=== PATIENT | male | born 1995 | race Caucasian/White ===

== ENCOUNTER 2017-11-13 20:04 | Emergency (ER) | payer OTHER ==
[~2017-11-13] VITALS: Ht 175.3 cm; Wt 99.8 kg
--- NOTE | 2017-11-13 20:06 | ER Report ---
History and Physical Time Seen By MD: 20:05 HPI/RAFI CHIEF COMPLAINT: Left lower quadrant abdominal pain HISTORY OF PRESENT ILLNESS: 21-year-old male presents ambulatory to the ER complaining of left lower quadrant abdominal pain since this morning. He notes no constipation, no diarrhea, no dysuria. Patient's had no previous abdominal surgery. Patient notes no exacerbating or alleviating factors. He describes 6/ 10 pain, sharp in nature, occasionally becoming more intense. He's had some mild nausea but no vomiting REVIEW OF SYSTEMS: Respiratory: No cough, no dyspnea. Cardiovascular: No chest pain, no palpitations. Gastrointestinal: As above Musculoskeletal: No back pain. Allergies: Coded Allergies: No Known Drug Allergies (Unverified , 11/13/17) Home Meds Active Scripts Tramadol Hcl (TRAMADOL HCL) 50 Mg Tablet, 1 TAB PO Q6H Y for PAIN, #12 MG TAKE ONE TO TWO TABLETS BY MOUTH EVERY FOUR TO SIX HOURS NEEDED Prov:BRITTANYBAILEY Najera DO 11/13/17 Ondansetron Hcl (ZOFRAN) 4 Mg Tablet, 4 MG PO Q6H Y for NAUSEA/VOMITING, #12 Prov:BRITTANYBAILEY aDnia 11/13/17 Reviewed Nurses Notes: Yes Old Medical Records Reviewed: Yes Constitutional Vital Sign - Last 24 Hours 11/13/17 11/13/17 11/13/17 11/13/17 20:10 20:11 20:19 20:30 Temp 97.6 Pulse 85 68 Resp 14 B/P (MAP) 168/120 (136) 168/120 148/110 (123) Pulse Ox 94 96 11/13/17 11/13/17 11/13/17 11/13/17 20:34 20:49 21:00 21:10 Pulse 77 73 B/P (MAP) 147/93 (111) Pulse Ox 98 93 95 11/13/17 11/13/17 11/13/17 11/13/17 21:15 21:20 21:25 21:30 Pulse 69 69 70 63 B/P (MAP) 134/92 (106) Pulse Ox 97 96 97 99 11/13/17 11/13/17 11/13/17 11/13/17 21:35 21:40 21:45 21:50 Pulse 65 72 73 71 Pulse Ox 96 98 97 97 11/13/17 11/13/17 11/13/1712/18 21:55 22:00 22:05 22:10 Pulse 76 70 71 79 B/P (MAP) 127/90 (102) Pulse Ox 99 98 96 95 11/13/17 22:15 Pulse 78 Pulse Ox 98 Physical Exam General Appearance: The patient is alert, has no immediate need for airway protection and no current signs of toxicity. Vital signs stable, afebrile, pulse ox normal Eyes: Pupils equal and round no injection. Respiratory: Chest is non tender, lungs are clear to auscultation. Cardiac: regular rate and rhythm Gastrointestinal: Abdomen is soft, mild left lower quadrant tenderness, no rebound or guarding, no masses, bowel sounds normal. No CVA tenderness Musculoskeletal: Neck: Neck is supple and non tender. Extremities have full range of motion and are non tender. Skin: No rashes or lesions. DIFFERENTIAL DIAGNOSIS: After history and physical exam differential diagnosis was considered for abdominal pain including but not limited to appendicitis, cholecystitis, gastritis, renal stone, diverticulitis, colitis and urinary tract infection. Medical Decision Making Data Points Result Diagram: 11/13/17201511/13/172015 Laboratory Hematology Test 11/13/17 20:16 11/13/17 21:08 Red Blood Count 6.09 M/uL (4.00-5.60) Mean Corpuscular Volume 85.5 fL (80.0-96.0) Mean Corpuscular Hemoglobin 28.9 pg (26.0-33.0) Mean Corpuscular Hemoglobin Concent 33.8 g/dL (32.0-36.0) Red Cell Distribution Width 14.1 % (11.5-14.5) Mean Platelet Volume 7.7 fL (7.2-11.1) Neutrophils (%) (Auto) 45.7 % (39.4-72.5) Lymphocytes (%) (Auto) 38.3 % (17.6-49.6) Monocytes (%) (Auto) 10.2 % (4.1-12.4) Eosinophils (%) (Auto) 5.2 % (0.4-6.7) Basophils (%) (Auto) 0.6 % (0.3-1.4) Nucleated RBC Relative Count (auto) 0.1 /100WBC Neutrophils # (Auto) 4.2 K/uL (2.0-7.4) Lymphocytes # (Auto) 3.5 K/uL (1.3-3.6) Monocytes # (Auto) 0.9 K/uL (0.3-1.0) Eosinophils # (Auto) 0.5 K/uL (0.0-0.5) Basophils # (Auto) 0.1 K/uL (0.0-0.1) Nucleated RBC Absolute Count (auto) 0.01 K/uL Sodium Level 140 mmol/L (137-145) Potassium Level 4.0 mmol/L (3.5-5.0) Chloride Level 98 mmol/L (98-107) Carbon Dioxide Level 27 mmol/L (22-30) Blood Urea Nitrogen 11 mg/dl (9-21) Creatinine 0.90 mg/dl (0.66-1.25) Glomerular Filtration Rate Calc > 60.0 Random Glucose 86 mg/dl (75-110) Calcium Level 10.3 mg/dl (8.4-10.2) Total Bilirubin 0.4 mg/dl (0.2-1.3) Aspartate Amino Transf (AST/SGOT) 37 U/L (0-35) Alanine Aminotransferase (ALT/SGPT) 65 U/L (0-56) Alkaline Phosphatase 111 U/L (0-126) Total Protein 9.0 gm/dl (6.3-8.2) Albumin 5.1 g/dl (3.5-5.0) Amylase Level 92 U/L (0-110) Lipase 87 U/L (23-300) Urine Color Yellow Urine Clarity Clear Urine pH 6.0 pH (4.8-9.5) Urine Specific [place] 1.015 Urine Protein Negative mg/dL (NEGATIVE) Urine Glucose (UA) Negative mg/dL (NEGATIVE) Urine Ketones Negative mg/dL (NEGATIVE) Urine Blood Small (NEGATIVE) Urine Nitrite Negative (NEGATIVE) Urine Bilirubin Negative (NEGATIVE) Urine Urobilinogen Negative mg/dL (0.2-1.9) Urine Leukocyte Esterase Negative (NEGATIVE) Urine RBC 1 /HPF (0-2/HPF) Urine WBC None /HPF (0-5/HPF) Urine Squamous Epithelial Cells None /LPF (</=FEW) Urine Bacteria Negative /HPF (NONE-FEW) Urine Mucus Few /HPF (NONE-FEW) Chemistry Test 11/13/17 20:16 11/13/17 21:08 White Blood Count 9.2 k/uL (4.5-11.0) Red Blood Count 6.09 M/uL (4.00-5.60) Hemoglobin 17.6 g/dL (14.0-18.0) Hematocrit 52.1 % (42.0-52.0) Mean Corpuscular Volume 85.5 fL (80.0-96.0) Mean Corpuscular Hemoglobin 28.9 pg (26.0-33.0) Mean Corpuscular Hemoglobin Concent 33.8 g/dL (32.0-36.0) Red Cell Distribution Width 14.1 % (11.5-14.5) Platelet Count 266 K/uL (150-450) Mean Platelet Volume 7.7 fL (7.2-11.1) Neutrophils (%) (Auto) 45.7 % (39.4-72.5) Lymphocytes (%) (Auto) 38.3 % (17.6-49.6) Monocytes (%) (Auto) 10.2 % (4.1-12.4) Eosinophils (%) (Auto) 5.2 % (0.4-6.7) Basophils (%) (Auto) 0.6 % (0.3-1.4) Nucleated RBC Relative Count (auto) 0.1 /100WBC Neutrophils # (Auto) 4.2 K/uL (2.0-7.4) Lymphocytes # (Auto) 3.5 K/uL (1.3-3.6) Monocytes # (Auto) 0.9 K/uL (0.3-1.0) Eosinophils # (Auto) 0.5 K/uL (0.0-0.5) Basophils # (Auto) 0.1 K/uL (0.0-0.1) Nucleated RBC Absolute Count (auto) 0.01 K/uL Glomerular Filtration Rate Calc > 60.0 Calcium Level 10.3 mg/dl (8.4-10.2) Total Bilirubin 0.4 mg/dl (0.2-1.3) Aspartate Amino Transf (AST/SGOT) 37 U/L (0-35) Alanine Aminotransferase (ALT/SGPT) 65 U/L (0-56) Alkaline Phosphatase 111 U/L (0-126) Total Protein 9.0 gm/dl (6.3-8.2) Albumin 5.1 g/dl (3.5-5.0) Amylase Level 92 U/L (0-110) Lipase 87 U/L (23-300) Urine Color Yellow Urine Clarity Clear Urine pH 6.0 pH (4.8-9.5) Urine Specific [place] 1.015 Urine Protein Negative mg/dL (NEGATIVE) Urine Glucose (UA) Negative mg/dL (NEGATIVE) Urine Ketones Negative mg/dL (NEGATIVE) Urine Blood Small (NEGATIVE) Urine Nitrite Negative (NEGATIVE) Urine Bilirubin Negative (NEGATIVE) Urine Urobilinogen Negative mg/dL (0.2-1.9) Urine Leukocyte Esterase Negative (NEGATIVE) Urine RBC 1 /HPF (0-2/HPF) Urine WBC None /HPF (0-5/HPF) Urine Squamous Epithelial Cells None /LPF (</=FEW) Urine Bacteria Negative /HPF (NONE-FEW) Urine Mucus Few /HPF (NONE-FEW) Urinalysis Test 11/13/17 21:08 Urine Color Yellow Urine Clarity Clear Urine pH 6.0 pH (4.8-9.5) Urine Specific [place] 1.015 Urine Protein Negative mg/dL (NEGATIVE) Urine Glucose (UA) Negative mg/dL (NEGATIVE) Urine Ketones Negative mg/dL (NEGATIVE) Urine Blood Small (NEGATIVE) Urine Nitrite Negative (NEGATIVE) Urine Bilirubin Negative (NEGATIVE) Urine Urobilinogen Negative mg/dL (0.2-1.9) Urine Leukocyte Esterase Negative (NEGATIVE) Urine RBC 1 /HPF (0-2/HPF) Urine WBC None /HPF (0-5/HPF) Urine Squamous Epithelial Cells None /LPF (</=FEW) Urine Bacteria Negative /HPF (NONE-FEW) Urine Mucus Few /HPF (NONE-FEW) ED Course/Re-evaluation Clinical Indication for ER IV: Hydration, IV Access ED Course Patient was admitted to an examination room. H&P was done. The differential diagnoses was considered. On clinical examination. Patient has mild left lower quadrant tenderness. He is treated with IV fluids, Zofran, Toradol. On diagnostic evaluation laboratory studies are unremarkable. His urinalysis is unremarkable. I did discuss the potential of a occult kidney stone. I offered the patient is CT scan. He elected to decline at this time. Patient is discharged home. A conservative treatment plan of clear liquid diet. He is given tramadol for pain and Zofran for nausea. He is advised ibuprofen. He is advised to follow-up with primary care if unimproved in 3-5 days. Decision to Disposition Date: Nov 13, 2017 Decision to Disposition Time: 22:00 Depart Departure Latest Vital Signs Vital Signs Date Time Temp Pulse Resp B/P (MAP) Pulse Ox O2 Delivery O2 Flow Rate FiO2 11/13/17 22:15 78 98 11/13/17 22:00 127/90 (102) 11/13/17 20:11 97.6 14 Impression: Primary Impression: Left lower quadrant abdominal pain of unknown etiology Condition: Improved Disposition: HOME OR SELF-CARE Referrals: [facility] New Scripts Tramadol Hcl (TRAMADOL HCL) 50 Mg Tablet 1 TAB PO Q6H Y for PAIN, #12 MG TAKE ONE TO TWO TABLETS BY MOUTH EVERY FOUR TO SIX HOURS NEEDED Prov: BAILEY SOTO DO 11/13/17 Ondansetron Hcl (ZOFRAN) 4 Mg Tablet 4 MG PO Q6H Y for NAUSEA/VOMITING, #12 Prov: BAILEY SOTO DO 11/13/17 Patient Instructions: Abdominal Pain (ED), Clear Liquid Diet (ED) Additional Instructions: Follow clear liquid diet for 24-48 hours, then advance to the brat diet, bananas , rice, applesauce and toast. Take ibuprofen 200 mg 3 tablets 3 times a day for inflammatory pain relief Use Zofran as needed for nausea control Use tramadol for more severe pain relief Follow-up with [facility] if unimproved in 3-5 days Return to the ER for any worsening BAILEY SOTO DO Nov 13, 2017 20:06
[2017-11-13] MEDS ORDERED: NS(*) 0.9% 1000 ML BAG 1,000 ML IV ONE (20:20)
[2017-11-13] MEDS ORDERED: ONDANSETRON 4 MG/2 ML VIAL IVP ONE (20:20)
[2017-11-13] MEDS ORDERED: KETOROLAC 30 MG/ML VIAL IVP ONE (20:20)
[2017-11-13 20:26] LABS: PLATELET COUNT, AUTOMATED 266 K/uL (150-450)
[2017-11-13 22:00] VITALS: BP 127/90
[2017-11-13] MEDS ORDERED: ONDANSETRON 4 MG ODT TH SL ONE (22:00)
[2017-11-13] MEDS ORDERED: traMADol 50 MG TAB TH 2 TAB/BOTTLE PO ONE (22:00)
[2017-11-13] MEDS ORDERED: ONDA4TAB97 PO (22:03)
[2017-11-13] MEDS ORDERED: TRAM-420 PO (22:03)
== END 2017-11-13 22:44 | disposition home or self-care (01) ==
LOC: ER 20:38
DX: R10.32 Left lower quadrant pain (principal)
CPT/HCPCS: 81001; 82150; 83690; 85025; 96361; 96374; 96375; 99284; J1885; J2405; J7030; 82040; 82247; 82310; 82374; 82435; 82565; 82947; 84075; 84132; 84155; 84295; 84450; 84460; 84520

== ENCOUNTER 2018-03-17 18:00 | Emergency (ER) | payer OTHER ==
[~2018-03-17 18:00] MED LIST: ONDA4TAB97 PO; TRAM-420 PO
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
[2018-03-17 19:29] VITALS: BP 112/70
== END 2018-03-17 19:31 | disposition home or self-care (01) ==
LOC: ER 18:15
DX: S20.212A Contusion of left front wall of thorax, initial encounter (principal); W16.92XA Jumping or diving into unspecified water causing other injury, initial encounter
CPT/HCPCS: 71046; 71100; 99284